=== PATIENT | female | born 1975 | race African-American/Black ===

== ENCOUNTER 2021-11-08 00:28 | Emergency (ER) | payer SELFPAY ==
--- NOTE | 2021-11-08 00:45 | NUR ---
PATIENT WENT UP TO REGISTRATION WINDOW AND STATED " I DON'T WANT TO BE SEEN ANYMORE."
[2021-11-10] MEDS ORDERED: POTASSIUM CHLORIDE 20 MEQ TAB.PRT.SR ONE (19:51)
[2021-11-10] MEDS ORDERED: LORAZEPAM 2 MG/1 ML VIAL ONE (21:26)
== END 2021-11-08 01:00 | disposition left against medical advice (07) ==
LOC: ER 00:49
DX: Z53.21 Procedure and treatment not carried out due to patient leaving prior to being seen by health care provider (principal)
CPT/HCPCS: A4663; J2060

== ENCOUNTER 2021-11-10 18:14 | Emergency (ER) | payer BC ==
[~2021-11-10] VITALS: Ht 170.2 cm; Wt 62.6 kg
[2021-11-10 19:09] LABS: MEAN CORPUSCULAR HEMOGLOBIN 15.7 uug (24.7-32.8)
[2021-11-10 19:18] LABS: CREATININE 0.8 mg/dL (0.6-1.3); POTASSIUM 3.2 mmol/L (3.5-5.1)
[2021-11-10] MEDS: POTASSIUM CHLORIDE 20 MEQ TAB.PRT.SR PO ONE (19:53)
[2021-11-10 19:55] LABS: HEMATOCRIT 14.3 % (31.2-41.9); PLATELET COUNT (AUTO) 33 K/uL (179-408)
[2021-11-10] MEDS: LORAZEPAM 2 MG/1 ML VIAL IV ONE (21:29)
--- NOTE | 2021-11-10 21:32 | NUR ---
Started 1st unit of PRBC.
[2021-11-10 22:14] LABS: LYMPHOCYTES % (MANUAL) 48 % (20-40); MONOCYTES % (MANUAL) 4 % (2-10); NEUTROPHILS % (MANUAL) 48 % (42-75)
--- NOTE | 2021-11-10 23:55 | NUR ---
1st unbit of PRBC completed with no blood transfusion reaction noted.
--- NOTE | 2021-11-11 01:00 | NUR ---
Started 2nd unit pf PRBC. Patient tolerating transfusion at this time.
--- NOTE | 2021-11-11 02:00 | NUR ---
Patient sleeping on gurny with no distress noted.
--- NOTE | 2021-11-11 03:42 | NUR ---
2nd unit of PRBC completed. Tolerated transfusion with no reaction noted.
[2021-11-11 04:11] LABS: HEMATOCRIT 22.1 % (31.2-41.9); MEAN CORPUSCULAR HEMOGLOBIN 19.7 uug (24.7-32.8); MEAN CORPUSCULAR VOLUME 67.9 fL (75.5-95.3)
[2021-11-11 04:16] LABS: PLATELET COUNT (AUTO) 20 K/uL (179-408)
--- NOTE | 2021-11-11 05:20 | NUR ---
IV removed. Catheter intact and site benign. Pressure and 4x4 gauze applied to site. No bleeding noted.
[2021-11-11] MEDS ORDERED: IBUP-1958 PO (05:41)
[2021-11-11] MEDS ORDERED: OXYC-128 PO (05:41)
--- NOTE | 2021-11-11 05:50 | NUR ---
Patient discharged to home in stable condition. Written and verbal after care instructions given. Patient verbalizes understanding of instructions. Stressed follow up or return to ER for worsening s/s.
[2021-11-11 06:10] VITALS: BP 145/88
== END 2021-11-11 06:11 | disposition home or self-care (01) ==
LOC: ER 18:20
DX: D50.0 Iron deficiency anemia secondary to blood loss (chronic) (principal); D25.9 Leiomyoma of uterus, unspecified; D61.818 Other pancytopenia
CPT/HCPCS: 36415 ×2; 36430; 80048; 84702; 85007; 85025 ×2; 86850; 86900; 86901; 86920 ×2; 93005; 96374; 99285; J2060 ×2; P9016 ×2; 70030-TC; A4663